=== PATIENT | male | born 1970 | race Caucasian/White ===

== ENCOUNTER 2018-04-17 17:36 | Emergency (ER) | payer BC ==
[~2018-04-17] VITALS: Ht 177.8 cm; Wt 88.5 kg
[2018-04-17] MEDS ORDERED: PREDNISONE 20 MG TAB PO ONE (18:00)
[2018-04-17] MEDS ORDERED: ALBUTEROL/IPRATROPIUM 3 ML NEB NEB ONE (18:00)
--- NOTE | 2018-04-17 19:48 | Diagnostic Imaging Report ---
EXAMINATION: CHEST 2 VIEWS INDICATION: \S\fever, cough, rule out pneumonia COMPARISON: None FINDINGS: PA and lateral views TUBES and LINES: None. LUNGS: Lungs are well inflated. Lungs are clear. There is no evidence of pneumonia or pulmonary edema. PLEURA: No pleural effusion or pneumothorax. HEART AND MEDIASTINUM: The cardiomediastinal silhouette is unremarkable. BONES AND SOFT TISSUES: No acute osseous lesion. Soft tissues are unremarkable. UPPER ABDOMEN: No free air under the diaphragm. Surgical clips in the left upper quadrant abdomen. IMPRESSION: No acute thoracic abnormality. Signed by: Dr. Jan Johnson M.D. on 04/17/2018 7:45 PM
[2018-04-17] MEDS ORDERED: PREDNISONE 20 MG TAB ONE (22:37)
== END 2018-04-17 22:00 | disposition left against medical advice (07) ==
LOC: ER 17:36
DX: R05 Cough (principal); J40 Bronchitis, not specified as acute or chronic
CPT/HCPCS: 71046